=== PATIENT | male | born 1950 | race Hispanic/Latino ===

== ENCOUNTER → 2019-12-25 | Day surgery (SDC) | payer MEDICARE, OTHER ==
[2019-12-21 12:58] LABS: BASOPHILS % 0.7 % (0.0-1.0); EOSINOPHILS # (AUTO) 0.1 (0.0-0.4); EOSINOPHILS % 1.2 % (0.0-6.0); HEMATOCRIT 40.6 % (38.2-49.6); HEMOGLOBIN 13.7 g/dL (14.0-18.0); LYMPHOCYTES # (AUTO) 1.2 (1.0-3.2); LYMPHOCYTES % 21.7 % (18.0-39.1); MEAN CORPUSCULAR HEMOGLOBIN 31.9 pg (28-32); MEAN CORPUSCULAR HGB CONC 33.7 g/dL (31-35); MEAN CORPUSCULAR VOLUME 94.4 fL (81-99); MONOCYTES # (AUTO) 0.6 (0.2-0.8); MONOCYTES % 11.4 % (4.4-11.3); NEUTROPHILS # (AUTO) 3.6 (2.1-6.9); NEUTROPHILS % 64.6 % (38.7-80.0); PLATELET COUNT 183 x10e3/uL (140-360)
[2019-12-21 13:19] LABS: ALANINE AMINOTRANSFERASE 56 IU/L (0-55); ALBUMIN/GLOBULIN RATIO 1.3 (0.8-2.0); ALKALINE PHOSPHATASE 130 IU/L (40-150); ANION GAP 16.5 mmol/L (8-16); BLOOD UREA NITROGEN 13 mg/dL (7-26); BUN/CREATININE RATIO 17 (6-25); CALCIUM 8.5 mg/dL (8.4-10.2); CARBON DIOXIDE 21 mmol/L (22-29); CHLORIDE 105 mmol/L (98-107); CREATININE, SERUM 0.75 mg/dL (0.72-1.25); EST GLOMERULAR FILTRATION RATE > 60 ML/MIN (60-); GLUCOSE 101 mg/dL (74-118); POTASSIUM 4.5 mmol/L (3.5-5.1); SODIUM 138 mmol/L (136-145)
[~2019-12-25] VITALS: Ht 162.6 cm; Wt 68.0 kg
[~2019-12-25] MED LIST: ALPRAZOLAM 0.5 MG TAB ONE; ASPIRIN EC81 MG PO; DIPHENHYDRAMINE HCL 25 MG CAP ONE; FENTANYL CITRATE/PF 100MCG/2 ML INJ ONE; FINASTERIDE5 MG PO; FLOMAX0.4 MG PO; HEPARIN SOD/SOD CHLORIDE 2,000 ML ONE; IOPAMIDOL 370 MG/ML 200 ML INFUS..BTL INJ ONE; LIDOCAINE HCL 2% LOCAL 20 ML VIAL ONE; LIPITOR20 MG PO; METOPROLOL SUCC25 MG PO; MIDAZOLAM HCL 2 MG/2 ML VIAL ONE; MULTI-VITAMIN1 EACH PO; NITROGLYCERIN/D5W 200 MCG/ML 250 ML ONE; SODIUM CHLORIDE 0.9% 1000ML 1,000 ML ONE; SPIRIVA18 MCG INH; TRAZODONE HCL50 MG PO
[2019-12-25 07:15] VITALS: BP 138/65
[2019-12-25 09:06] VITALS: BP 141/61
--- NOTE | 2019-12-25 09:06 | NUR ---
[id number] am RECEIVING NOTE [employer] DEPT............................................................... Bedside report received from SATISH Moran. [id number]. Alert oriented and appropriate, PERRLA, respirations even and unlabored to room air. Pulses x4 extremities equal and strong. Pedal pulses PT/DP x4 doppler 2+ Cap fill brisk < 3 sec. Rt Perclose dry and intact No gross issues pain,pallor, pressure or dysrhythmia.. Skin warm and dry integrity appears D/I. IV 20g to left hand at 100cchr via controller. Presents healthy w/o s/s of infiltration or complaint. Abdomen soft and supple. pt offered toileting, denies need to urinate or defecate. No personal affects with patient. Family XXXXX. Pt and family verbalizes understanding of POC. Currently w/o complaint of pain or need. ds/rn
[2019-12-25 09:15] VITALS: BP 141/66
--- NOTE | 2019-12-25 09:20 | Operative Report ---
DATE OF PROCEDURE: 12/25/2019 SURGEON: Ad Alex MD INDICATION: Coronary artery disease, unstable angina, abnormal stress test. PROCEDURES PERFORMED: 1. Left heart catheterization, selective coronary angiography. 2. Selective cannulation of one arterial and two venous bypass conduits. 3. Conscious sedation administration, hemodynamic and neurological monitoring by seed laboratory technician RN, supervision by 35 minutes. 4. Deployment of right groin Perclose closure device. COMPLICATIONS: None. RECOMMENDATIONS: Medical therapy. Access obtained in the right femoral artery. A 6-[place] sheath was placed. Coronary angiography demonstrated small coronary vessels, left main distal 20% to 30% stenosis, diffuse proximal left anterior descending artery 50% stenosis 2 mm vessel. Circumflex distally was occluded. Right coronary artery proximally is occluded. Left internal mammary artery was not identified. Saphenous vein bypass to obtuse marginal branch was widely patent. Saphenous vein bypass graft to the right posterior descending artery was widely patent. Collaterals filled the distal circumflex artery. No complications. LV end-diastolic pressure of 15. No gradient across the aortic valve on pullback. Right groin repaired using Perclose closure device. The patient discharged home. Ad Alex MD [facility] /[id number]
[2019-12-25 09:30] VITALS: BP 140/70
[2019-12-25 10:00] VITALS: BP 144/77
--- NOTE | 2019-12-25 10:00 | NUR ---
[id number] am [employer] REPRESENTATIVE RECOVERY DISCHARGE NURSING NOTE Pt meets DC criteria. Rt groin assessed for s/s of complication and presence of hematoma. Skin warm, dry, no discolor, and pulses present. IV removed from left hand at 100cchr, Distal tip appears intact. VS WNL. Pt denies pain, sob, or need at this time. Family at BS. Review of discharge paperwork and follow up instructions. verbalized understanding. Pt to wheelchair and transported to front of hospital. Transferred to private vehicle under own strength w/o incident with DC paperwork in hand. - yoshi/rn
== END | disposition home or self-care (01) ==
LOC: CATH LAB 06:08
PROVIDERS: ATTEND Internal Medicine Interventional Cardiology
DX: I25.700 Atherosclerosis of coronary artery bypass graft(s), unspecified, with unstable angina pectoris (principal); Z95.1 Presence of aortocoronary bypass graft; R94.39 Abnormal result of other cardiovascular function study; I11.0 Hypertensive heart disease with heart failure; I50.9 Heart failure, unspecified; Z01.812 Encounter for preprocedural laboratory examination; Z11.59 Encounter for screening for other viral diseases; Z79.82 Long term (current) use of aspirin
CPT/HCPCS: 36415; 80053; 85025; 93459; C1760; C1769; J2001; J2250; J3010; J7030; Q9967; U0002; 99152